=== PATIENT | male | born 1940 | race Caucasian/White ===

== ENCOUNTER 2016-07-18 12:09 | Emergency (ER) | payer MEDICARE, OTHER ==
[2016-07-18 11:00] LABS: BASOPHILS 0 %; EOSINOPHILS 0.2 %; EOSINOPHILS ABSOLUTE 0.01 10/3/uL (0.0-0.53); IMMATURE GRANULOCYTES 0.6 %; IMMATURE GRANULOCYTES ABSOLUTE 0.03 10/3/uL (0.0-0.11); LYMPHOCYTES 16.4 %; LYMPHOCYTES ABSOLUTE 0.82 10/3/uL (0.67-4.30); MEAN CORPUS HGB CONC 33.7 g/dL (32.0-36.0); MEAN CORPUSCULAR HEMOGLOB 36.6 pg (26.0-34.0); MEAN PLATELET VOLUME 10.1 fL (9.2-13.0); MONOCYTES 10.2 %; MONOCYTES ABSOLUTE 0.51 10/3/uL (0.21-1.20); NEUTROPHILS 72.6 %; NEUTROPHILS ABSOLUTE 3.62 10/3/uL (2.02-8.40); PLATELET COUNT 136 10/3/uL (150-400); RBC DISTRIBUTION WIDTH 14.7 % (12.0-16.0)
[2016-07-18 11:01] LABS: HEMATOCRIT 32.3 % (40.0-51.0); HEMOGLOBIN 10.9 g/dL (13.6-17.8); MANUAL DIFF NO %; MEAN CORPUSCULAR VOLUME 108.4 fL (80-100); RED CELL COUNT 2.98 10/6/uL (4.7-6.1)
[2016-07-18 11:16] LABS: BUN (BLOOD UREA NITROGEN) 22 MG/DL (6-23); CALCIUM, SERUM 9.2 MG/DL (8.5-10.4); CHLORIDE, SERUM 97 MMOL/L (96-112); CO2 (CARBON DIOXIDE) 27 MMOL/L (24-34); GLUCOSE, SERUM 123 MG/DL (60-99); SGOT(AST) 10 U/L (5-40); SGPT(ALT) 18 U/L (5-65); SODIUM, SERUM 134 MMOL/L (135-148); TOTAL BILIRUBIN 0.5 MG/DL (0-1.2)
[2016-07-18 11:19] LABS: A/G RATIO 1.1 (0.7-1.9); ALBUMIN 4.1 G/DL (3.5-5.0); ALKALINE PHOSPHATASE 97 U/L (45-117); CREATININE 6.57 MG/DL (0.70-1.30); GFR AFRICAN AMERICAN 9 ML/MIN (>=60); GFR NON AFRICAN AMERICAN 7 ML/MIN (>=60); GLOBULIN 3.9 G/DL (2.5-4.1); POTASSIUM, SERUM 5.3 MMOL/L (3.5-5.3)
[~2016-07-18 12:09] MED LIST: ACET500CAP PO; AGGRENOX PO; ALEVE220 MG PO; ALPHA LIPOIC ACID; ALPHA LIPOIC300 MG PO; AMB5 PO; ASAB PO; B COMPLEX PO; CAT1 PO; CEFT2 PO; CIALIS2.5 MG PO; CO Q-10200 MG PO; COQ-10200 MG PO; DEMA100 PO; DIOVAN PO; DSS PO; EPOGEN; EPOGEN IV; FERROUS SULF325 M1 PO; GABAPENTIN PO; GENASYME80 MG PO; HYDROCODONE PO; IODOSORB TOP; IRON IV IV; IRON PO; L20 PO; L80 PO; LOP25 PO; LOP50 PO; LORT7 PO; MAG OXIDE250 MG PO; MAGNESIUM PO; MAGOX4 PO; MELA3 PO; MELATONIN5 M1 PO; MIRALAXPKT PO; MULTIVIT/MIN PO; Melatonin PO; NEUR100 PO; NORCO1 TAB PO; NORV10 PO; PCET PO; PEP20 PO; PERCOCET1 TA4 PO; PLAVIX PO; PRAND1 PO; PRILO PO; PRIN10 PO; RENAL VITAMIN PO; RENAPLEX PO; ROCALTROL0.5 MCG OR; SANTYL250 MG/GM TOP; SILVADENE1 % TOP; STOOL SOFTENER PO; TIAZA4 PO; TUMSROLL PO; VENOFER IV; VITAMIN D1000 UNI1 PO; Vit D 3; Z5 PO; ZOCOR20 PO; ZYRTEC ALLGY10 MG PO; [UNRECOGNIZED DRUG - OTHER] PO
[2016-10-11] MEDS ORDERED: ACET500CAP PO (17:04)
[2016-10-11] MEDS ORDERED: ASAB PO (17:04)
[2016-10-11] MEDS ORDERED: PRIN5 PO (17:05)
[2016-10-11] MEDS ORDERED: CO Q-10200 MG PO (17:06)
[2016-10-11] MEDS ORDERED: NEUR100 PO (17:06)
[2016-10-11] MEDS ORDERED: DSS PO (17:06)
[2016-10-11] MEDS ORDERED: PLAVIX PO (17:06)
[2016-10-11] MEDS ORDERED: ALPHA LIPOIC300 MG PO (17:07)
[2016-10-11] MEDS ORDERED: PRILO PO (17:08)
[2016-10-11] MEDS ORDERED: VENOFER IV (17:08)
[2016-10-11] MEDS ORDERED: ALIGN4 MG PO (17:09)
[2016-10-11] MEDS ORDERED: RENA-VITE PO (17:10)
[2016-10-11] MEDS ORDERED: NORV5 (17:11)
[2016-10-20] MEDS ORDERED: HALF81 PO (10:51)
[2016-10-20] MEDS ORDERED: ACET500CAP PO (10:51)
[2016-10-20] MEDS ORDERED: DSS PO (10:52)
[2016-10-20] MEDS ORDERED: NITROSTAT0.4 MG SL (10:52)
[2016-10-20] MEDS ORDERED: CO Q-10200 MG PO (10:52)
[2016-10-20] MEDS ORDERED: ZESTRIL5 MG PO (10:52)
[2016-10-20] MEDS ORDERED: PLAVIX PO (10:52)
[2016-10-20] MEDS ORDERED: NEUR100 PO (10:53)
[2016-10-20] MEDS ORDERED: ALPHA LIPOIC300 MG PO (10:53)
[2016-10-20] MEDS ORDERED: LIPITOR40 PO (10:53)
[2016-10-20] MEDS ORDERED: VENOFER IV (10:53)
[2016-10-20] MEDS ORDERED: FLORASTOR250 MG PO (10:54)
[2016-10-20] MEDS ORDERED: PCET PO (10:54)
[2016-10-20] MEDS ORDERED: PRILO PO (10:54)
[2016-10-20] MEDS ORDERED: MELATONIN5 M1 PO (10:54)
[2016-10-20] MEDS ORDERED: RENAPLEX PO (10:55)
[2016-10-20] MEDS ORDERED: EPOGEN IV (10:56)
[2016-10-20] MEDS ORDERED: VANCO (10:56)
[2016-10-20] MEDS ORDERED: MIRALAX POWDER1 PKT PO (10:56)
[2016-10-20] MEDS ORDERED: NORV5 PO (10:57)
[2016-11-27] MEDS ORDERED: LEVAQUIN5T PO (17:12)
[2016-11-27] MEDS ORDERED: PLAVIX PO (17:28)
[2016-11-27] MEDS ORDERED: ASAB PO (17:28)
[2017-01-06] MEDS ORDERED: BACTRIM DS1 TAB PO (14:33)
== END 2016-07-18 14:09 | disposition home or self-care (01) ==
LOC: ER 12:09
PROVIDERS: Emergency Medicine
DX: R11.2 Nausea with vomiting, unspecified (principal); I12.9 Hypertensive chronic kidney disease with stage 1 through stage 4 chronic kidney disease, or unspecified chronic kidney disease; N18.9 Chronic kidney disease, unspecified; E11.9 Type 2 diabetes mellitus without complications; Z86.73 Personal history of transient ischemic attack (TIA), and cerebral infarction without residual deficits; Z95.5 Presence of coronary angioplasty implant and graft; Z99.2 Dependence on renal dialysis; Z87.891 Personal history of nicotine dependence; Z79.82 Long term (current) use of aspirin; Z79.899 Other long term (current) drug therapy
CPT/HCPCS: 70450; 71010; 80053; 83690; 85025; 96374; 96375; 96376; 99285; J1200; J1885; J2405; J2765